=== PATIENT | female | born 1945 | race Caucasian/White ===

== ENCOUNTER 2024-01-03 03:02 | Inpatient (IN) | payer MEDICARE, OTHER ==
[2024-01-03] MEDS ORDERED: Morphine 4 MG/ML VIAL ONE (03:25)
[2024-01-03] MEDS ORDERED: Ondansetron PF 4 MG/2 ML Vial ONE ×2 (03:25→10:34)
[2024-01-03] MEDS ORDERED: fentaNYL 50 mcg/mL 1 mL Vial ONE ×3 (03:45→10:56)
[2024-01-03 03:48] LABS: #Monocytes 0.5 thou/uL (0.11-0.59); #Neutrophils 9.1 thou/uL (1.40-6.50); %Basophils 0.2 % (0.0-1.0); %Eosinophils 0.1 % (0.0-10.0); %Lymphocytes 6.5 % (21.0-51.0); %Neutrophils 87.9 % (42.0-75.0); Hematocrit 40.3 % (36.0-47.0); Hemoglobin 12.9 g/dL (12.0-16.0); Mean Corpuscular Hemoglobin 31.5 pg (27.0-31.0); Mean Corpuscular Volume 98.3 fl (78.0-98.0); Mean Platelet Volume 9.7 fL (7.4-10.4); Platelet Count 205 10x3/uL (130-400); RBC Distribution Width 13.1 % (11.5-14.5); White Blood Cell (WBC) Count 10.4 10x3/uL (4.8-10.8)
[2024-01-03] MEDS ORDERED: PROPOFOL 20 ML ONE (03:48)
[2024-01-03 04:03] LABS: INR-International Normal Ratio 1.1; PTT 31.6 sec (22.9-36.1); Prothrombin Time 14.4 sec (12.0-14.7)
[2024-01-03 04:16] LABS: ALT (SGPT) 9 U/L (8-55); AST (SGOT) 16 U/L (5-34); Albumin 3.7 g/dL (3.4-4.8); Alkaline Phosphatase 70 U/L (40-110); Anion Gap 13 mmol/L (10-20); BUN (Urea Nitrogen) 13 mg/dL (9.8-20.1); Bilirubin, Total 0.5 mg/dL (0.2-1.2); CK (CPK) 85 U/L (29-168); Calc. Creatinine Clearance 0 mL/min (70-130); Calcium 8.9 mg/dL (7.8-10.44); Carbon Dioxide 24 mmol/L (23-31); Chloride 103 mmol/L (98-107); Estimated GFR 53; Globulin 3.2 g/dL (2.4-3.5); Glucose 140 mg/dL (83-110); Lipase 15 U/L (8-78); Magnesium 2.1 mg/dL (1.6-2.6); Potassium 3.7 mmol/L (3.5-5.1); Protein, Total 6.9 g/dL (5.8-8.1); Sodium 136 mmol/L (136-145)
[2024-01-03 04:18] LABS: Troponin I 0.023 ng/mL (< 0.028)
[2024-01-03] MEDS ORDERED: Ondansetron PF 4 MG/2 ML Vial IVP PRN (04:34)
[2024-01-03] MEDS ORDERED: hydrALAZINE 20 MG/ML VIAL SLOW IVP PRN (04:34)
[2024-01-03] MEDS ORDERED: Ondansetron ODT 4 MG TAB PO PRN (04:34)
[2024-01-03] MEDS ORDERED: Ketorolac Tromethamine 30 MG (1 mL) VIAL IVP SCH (04:45)
[2024-01-03] MEDS ORDERED: LORazepam 2 MG/ML SYR.(CARPUJECT) ONE (05:14)
[2024-01-03] MEDS: Lactated Ringer's 1,000 ML IV SCH (06:20)
[2024-01-03] MEDS ORDERED: CEFAZOLIN 2 GM in Sodium Chloride 0.9% 100 ML IVPB SCH (06:45)
[2024-01-03 06:50] LABS: Lactic Acid 2.3 mmol/L (0.5-2.2)
[2024-01-03] MEDS: Morphine 4 MG/ML VIAL SLOW IVP PRN (08:46)
[2024-01-03 08:51] VITALS: BMI 31.1
[2024-01-03] MEDS ORDERED: Fentanyl 100 MCG/2 ML VIAL SLOW IVP PRN (09:12)
[2024-01-03] MEDS: fentaNYL 50 mcg/mL 1 mL Vial SLOW IVP PRN (09:49)
[2024-01-03] MEDS ORDERED: Dexamethasone 4 mg/ml Vial ONE (10:34)
[2024-01-03] MEDS ORDERED: SUCCINYLCHOLINE/SOD CL,ISO/PF 200 MG/10 ML SYRINGE FS ONE (10:34)
[2024-01-03] MEDS ORDERED: fentaNYL PF 100 MCG/2 ML SYRINGE ONE ×2 (10:35→14:51)
[2024-01-03] MEDS ORDERED: Iopamidol 370 76% 100 ML VIAL ONE (10:46)
[2024-01-03] MEDS ORDERED: CEFAZOLIN 2 GM VIAL ONE (11:05)
[2024-01-03] MEDS: Famotidine 20 MG TAB PO SCH (11:05)
[2024-01-03] MEDS ORDERED: Sodium Chloride 0.9% 100 ML ONE (11:05)
[2024-01-03] MEDS ORDERED: ePHEDrine Sulfate 50 MG/10 ML VIAL ONE (11:58)
[2024-01-03] MEDS ORDERED: PHENYLEPHRINE-NS 100 MCG/ML 10 ML SYRINGE ONE (12:00)
[2024-01-03] MEDS ORDERED: Rocuronium Bromide 10 MG/ML (10ML VIAL) ONE (12:45)
[2024-01-03] MEDS ORDERED: Morphine Sulfate 2 MG/ML SYRINGE SLOW IVP PRN (13:39)
[2024-01-03] MEDS ORDERED: Ondansetron HCl/PF 4 MG/2 ML Vial IVP PRN (13:39)
[2024-01-03] MEDS ORDERED: Promethazine HCl 25 MG/ML VIAL IM PRN (13:39)
[2024-01-03] MEDS ORDERED: NEOSTIGMINE 3 MG/3 ML SYR 3 MG/3 ML SYRINGE ONE (13:51)
[2024-01-03] MEDS ORDERED: Glycopyrrolate 0.2 MG/ML 5 ML SYRINGE ONE (13:51)
[2024-01-03] MEDS: HYDROcodone/Acetaminophen 10/325 mg Tablet PO SCH (19:47)
[2024-01-03] MEDS: CEFAZOLIN 2 GM in Sodium Chloride 0.9% 100 ML IVPB SCH (19:49)
[2024-01-04] MEDS: HYDROcodone/Acetaminophen 10/325 mg Tablet PO PRN (03:17)
[2024-01-04] MEDS: traMADol HCl 50 MG TAB PO PRN (03:56)
[2024-01-04] MEDS: Morphine 2 MG/ML VIAL SLOW IVP PRN (11:14)
[2024-01-04] MEDS ORDERED: SUMAtriptan Succinate 50 MG TAB PO PRN (11:32)
[2024-01-04] MEDS: Lactulose 20 GM (30 mL) UDCUP PO SCH (17:21)
[2024-01-04] MEDS: Senokot S 8.6-50 MG TAB PO SCH (20:22)
[2024-01-05 04:40] LABS: #Eosinphils 0.1 thou/uL (0.0-0.7); #Monocytes 0.5 thou/uL (0.11-0.59); #Neutrophils 4.4 thou/uL (1.40-6.50); %Basophils 0.4 % (0.0-1.0); %Eosinophils 1.8 % (0.0-10.0); %Lymphocytes 12.5 % (21.0-51.0); %Monocytes 8.1 % (0.0-10.0); %Neutrophils 76.8 % (42.0-75.0); Hematocrit 24.9 % (36.0-47.0); Hemoglobin 7.9 g/dL (12.0-16.0); Mean Corpuscular HGB CONC 31.7 g/dL (32.0-36.0); Mean Corpuscular Hemoglobin 30.9 pg (27.0-31.0); Mean Corpuscular Volume 97.3 fl (78.0-98.0); Mean Platelet Volume 10.5 fL (7.4-10.4); Platelet Count 111 10x3/uL (130-400); RBC Distribution Width 13.5 % (11.5-14.5); Red Blood Cell (RBC) Count 2.56 mill/uL (4.20-5.40); White Blood Cell (WBC) Count 5.7 10x3/uL (4.8-10.8)
[2024-01-05 05:21] LABS: CellaVision Operator ID lab.abc; Platelet Adequacy Comment Platelets Decreased; RBC Morphology Within Normal Limits; Smudge Cells 17.8 %
[2024-01-05] MEDS: Naloxegol 12.5 MG TAB PO SCH (06:31)
[2024-01-05] MEDS: Enoxaparin 40 MG (0.4 mL) SYRINGE SC SCH (09:27)
[2024-01-05] MEDS: ALPRAZolam 0.5 MG TAB PO PRN (09:27)
[2024-01-05] MEDS: Sertraline 100 MG TAB PO SCH (09:28)
[2024-01-05] MEDS: Ascorbic Acid 500 mg Chewable Tablet PO SCH (09:28)
[2024-01-05] MEDS: Acetaminophen 500 MG TAB PO SCH (09:28)
[2024-01-05] MEDS: Ferrous Sulfate 325 MG TAB PO SCH (09:29)
[2024-01-05] MEDS: Gabapentin 100 MG CAP PO SCH (09:29)
[2024-01-05] MEDS: Polyethylene Glycol 3350 17 GM Packet PO SCH (09:35)
[2024-01-05] MEDS: Magnesium Citrate 300 ML BOT PO SCH (13:47)
[2024-01-06] MEDS: HYDROcodone/Acetaminophen 10/325 mg Tablet PO PRN (11:19)
[2024-01-07 11:11] LABS: Anion Gap 9 mmol/L (10-20); BUN (Urea Nitrogen) 13 mg/dL (9.8-20.1); Calc. Creatinine Clearance 65 mL/min (70-130); Calcium 8.5 mg/dL (7.8-10.44); Carbon Dioxide 26 mmol/L (23-31); Chloride 106 mmol/L (98-107); Estimated GFR 70; Glucose 100 mg/dL (83-110); Potassium 4.2 mmol/L (3.5-5.1); Sodium 137 mmol/L (136-145)
[2024-01-09] MEDS: Gabapentin 300 MG CAP PO SCH (16:23)
[2024-01-09] MEDS: Cyclobenzaprine 10 MG TAB PO PRN (23:53)
[2024-01-10 04:09] LABS: Hematocrit 25.8 % (36.0-47.0); Hemoglobin 8.1 g/dL (12.0-16.0)
[2024-01-11 07:22] VITALS: TEMP 98
[2024-01-11 15:49] VITALS: BP 117/76
== END 2024-01-11 15:30 | DRG 481 ==
LOC: ERS 03:02 → ERHOLD 04:34 → SJJU 08:38
PROVIDERS: ADMIT Specialist; ATTEND Specialist
PROC: 0QS706Z Reposition Left Upper Femur with Intramedullary Internal Fixation Device, Open Approach (ICD-10-PCS; principal; 2024-01-03)
PROC: 3E033XZ Introduction of Vasopressor into Peripheral Vein, Percutaneous Approach (ICD-10-PCS; 2024-01-03)
DX: S72.22XA Displaced subtrochanteric fracture of left femur, initial encounter for closed fracture (principal); D62 Acute posthemorrhagic anemia; I10 Essential (primary) hypertension; F32.A Depression, unspecified; F12.90 Cannabis use, unspecified, uncomplicated; G89.11 Acute pain due to trauma; W18.30XA Fall on same level, unspecified, initial encounter; Y92.041 Bathroom in boarding-house as the place of occurrence of the external cause; Z99.3 Dependence on wheelchair; Z90.49 Acquired absence of other specified parts of digestive tract; Z90.5 Acquired absence of kidney; Z85.51 Personal history of malignant neoplasm of bladder
CPT/HCPCS: 36415; 70450; 71045; 71260; 72125; 72170; 74177; 80048; 80053; 82550; 83605; 83690; 83735; 83880; 84484; 85014; 85018; 85025; 85610; 85730; 93005; 96374; 96375; 99152; 99153; C1713; C1776; G0390; J1100; J1650; J2060; J2270; J2272; J2405; J2704; J3010; J3490; J7120; Q9967